=== PATIENT | female | born 1985 | race Caucasian/White ===

== ENCOUNTER 2021-11-08 15:19 | Emergency (ER) | payer MEDICAID ==
[~2021-11-08] VITALS: Ht 152 cm; Wt 79.3 kg
[2021-11-08] MEDS ORDERED: diphenhydrAMINE 25 MG TAB (BENADRYL) PO ONE (15:45)
--- NOTE | 2021-11-08 15:50 | ED General ---
General Chief Complaint: General Problems/Pain Stated Complaint: KNEE PAIN, BACK PAIN, HIP PAIN, HIVES Nursing Triage Note: PT PRESENTS TO ED WITH COMPLAINTS OF HIVES X 2 DAYS AND KNEE/HIP PAIN X 2 MONTHS. Source of Information: Patient Exam Limitations: No Limitations (KARRI LYN) History of Present Illness Date Seen by Provider: Nov 08, 2021 Time Seen by Provider: 15:45 Initial Comments Patient is a 36-year-old female who presents ED multiple complaints. bilateral knee pain, hip pain, low back pain for the past 2 to 3 months. She reports sharp shooting pain to bilateral knees over the past 2 to 3 months. Worse with movement. Difficulty getting up and down stairs with her knee. Denies of any specific trauma, knee giving out. No bowel or urine incontinence, saddle paresthesia. She is concerned for possible UTI. Not concern for . No vaginal bleeding or vaginal discharge, fever, chills, nausea, vomiting, diarrhea. She reports diffuse hives throughout her chest. This started 2 days ago. No change in lotions, soaps, food. Denies taking medication. Does not currently follow-up with her primary care physician. Family history of arthritis. (KARRI LYN) Allergies and Home Medications Allergies Coded Allergies: No Known Drug Allergies (Unverified , 11/08/21) Patient Home Medication List Home Medication List Reviewed: Yes (KARRI LYN) Cephalexin (Cephalexin) 500 Mg Tablet, 500 MG PO BID Prescribed by: BROOKLYN WOODARD on 11/08/21 1631 Meloxicam (Meloxicam) 15 Mg Tablet, 15 MG PO DAILY Prescribed by: BROOKLYN WOODARD on 11/08/21 1631 Methylprednisolone (Methylprednisolone Dose Pack) 4 Mg Tab.ds.pk, 4 MG PO UD Prescribed by: BROOKLYN WOODARD on 11/08/21 1638 Review of Systems Review of Systems Constitutional: No chills, No diaphoresis, No fever, No malaise, No weakness EENTM: No double vision, No eye pain, No throat pain, No throat swelling Respiratory: No cough, No orthopnea, No short of breath, No wheezing Cardiovascular: No chest pain, No edema Gastrointestinal: No abdominal pain, No diarrhea, No nausea, No vomiting Genitourinary: No discharge, No dysuria, No frequency, No hematuria Musculoskeletal: back pain, joint pain Skin: No change in color, No change in hair/nails (KARRI LYN) All Other Systems Reviewed Negative Unless Noted: Yes (KARRI LYN) Past Dejrohs-Orqswx-Sulbwo Hx Patient Social History Tobacco Use?: No Substance use?: Yes Substance type: Methamphetamine Additional substance use comme: REPORTS SHE HAS BEEN CLEAN X 2 MONTHS Alcohol Use?: No Pt feels they are or have been: No (KARRI LYN) Past Medical History Surgery/Hospitalization HX: PMH: ADHD, DEPRESSION (KARRI LYN) Physical Exam Vital Signs Vital Signs - First Documented 11/08/21 15:31 Temp 36.1 Pulse 96 Resp 18 B/P (MAP) 134/78 (96) Pulse Ox 100 (VERÓNICA PATRICIO MD) Vital Signs Capillary Refill : Less Than 3 Seconds (KARRI LYN) Height, Weight, BMI Height: '" Weight: lbs. oz. kg; 34.00 BMI Method: General Appearance: No Apparent Distress, WD/WN Eyes: Bilateral Eye Normal Inspection, Bilateral Eye PERRL, Bilateral Eye EOMI, Bilateral Eye Abnormal EOM HEENT: PERRL/EOMI, TMs Normal, Normal ENT Inspection, Pharynx Normal Neck: Full Range of Motion, Normal Inspection, Non Tender, Supple Respiratory: Chest Non Tender, Lungs Clear, Normal Breath Sounds, No Accessory Muscle Use, No Respiratory Distress Cardiovascular: Regular Rate, Rhythm, No Edema, No Gallop, No JVD, No Murmur Gastrointestinal: Normal Bowel Sounds, No Organomegaly, No Pulsatile Mass, Non Tender Back: Other (Lumbar midline tenderness. Bilateral lumbar paralumbar spinal muscle tenderness) Extremity: Other (Bilateral knee tenderness without erythema, swelling, exudate. Normal active range of motion. No crepitus with patella tracking. Negative anterior posterior drawer test. Negative pain with valgus varus stress. Negative Garcia's test.) Neurologic/Psychiatric: Alert, Oriented x3, No Motor/Sensory Deficits, Normal Mood/Affect Skin: Other (Mild diffuse erythematous edematous papules to the chest) (KARRI LYN) Progress/Results/Core Measures Suspected Sepsis SIRS Temperature: Pulse: 96 Respiratory Rate: 18 Blood Pressure 134 /78 Mean: 96 (KARRI LYN) Results/Orders Lab Results Laboratory Tests Test 11/08/21 15:50 Range/Units Urine Color YELLOW Urine Clarity CLEAR Urine pH 6.0 5-9 Urine Specific Chavies 1.020 1.016-1.022 Urine Protein NEGATIVE NEGATIVE Urine Glucose (UA) NEGATIVE NEGATIVE Urine Ketones NEGATIVE NEGATIVE Urine Nitrite NEGATIVE NEGATIVE Urine Bilirubin NEGATIVE NEGATIVE Urine Urobilinogen 0.2 < = 1.0 MG/DL Urine Leukocyte Esterase 1+ H NEGATIVE Urine RBC (Auto) NEGATIVE NEGATIVE Urine RBC 2-5 H /HPF Urine WBC 5-10 H /HPF Urine Squamous Epithelial Cells 5-10 /HPF Urine Crystals NONE /LPF Urine Bacteria FEW H /HPF Urine Casts NONE /LPF Urine Mucus SMALL H /LPF Urine Culture Indicated YES Urine Test NEGATIVE NEGATIVE (VERÓNICA PATRICIO MD) Micro Results Microbiology 11/08/21 Urine Culture - Final, Complete 3 or more isolates Strep agalactiae Group B (VERÓNICA PATRICIO MD) Vital Signs/I&O 11/08/21 11/08/21 15:31 16:43 Temp 36.1 36.1 Pulse 96 96 Resp 18 18 B/P (MAP) 134/78 (96) 134/78 Pulse Ox 100 100 (VERÓNICA PATRICIO MD) Vital Signs/I&O Capillary Refill : Less Than 3 Seconds (KARRI LYN) Blood Pressure Mean: 96 Departure Communication (Admissions) Patient concern for UTI. Urinalysis with potential UTI. Culture pending. Will discharge with Keflex. She has back pain, hip pain, knee pain. This appears to be worse with walking. No specific trauma. No erythema, swelling. No history of inflammatory disease. No history of any autoimmune disease such as rheumatoid arthritis. Not concern for sexual transmitted infection. Chlamydia and gonorrhea pending. Likely overuse versus arthritic. She is afebrile. Recommend anti-inflammatories. Patient with a steady gait. She also reports a rash which she does have some mild hives. Was given dose of Decadron. Will discharge her Medrol Dosepak. Continue with Benadryl. She needs establish care with PCP. If any worsening symptoms return back to ED for further evaluation. X-ray of the back negative for acute abnormality. Denies any drug use. No bowel or urine cons, saddle paresthesia. No neurological red flag findings (KARRI LYN) Impression Primary Impression: Joint pain Additional Impression: UTI (urinary tract infection) Disposition: 01 HOME, SELF-CARE Condition: Stable Departure-Patient Inst. Decision time for Depature: 16:30 (KARRI LYN) Referrals: [facility] [place] Patient Instructions: Joint Pain Scripts Methylprednisolone (Methylprednisolone Dose Pack) 4 Mg Tab.ds.pk 4 MG PO UD for 6 Days, #21 PKG PER DOSE PACK INSTRUCTIONS Prov: KARRI LYN 11/08/21 Meloxicam (Meloxicam) 15 Mg Tablet 15 MG PO DAILY for 20 Days, #20 TAB Prov: KARRI LYN 11/08/21 Cephalexin (Cephalexin) 500 Mg Tablet 500 MG PO BID for 7 Days, #14 TAB Prov: KARRI LYN 11/08/21 ATTENDING PHYSICIAN NOTE: I was physically present as attending physician in the emergency department during the care of this patient, but I was not directly involved in the decision making or delivery of care for this patient. (VERÓNICA PATRICIO MD) KARRI LYN Nov 08, 2021 15:50 VERÓNICA PATRICIO MD Nov 10, 2021 03:00
[2021-11-08 15:56] LABS: BILIRUBIN,URINE NEGATIVE (NEGATIVE); CLARITY,URINE CLEAR; COLOR,URINE YELLOW; GLUCOSE, URINE (UA) NEGATIVE (NEGATIVE); KETONES,URINE NEGATIVE (NEGATIVE); LEUKOCYTE ESTERASE ,URINE 1+ (NEGATIVE); NITRITE,URINE NEGATIVE (NEGATIVE); PROTEIN,URINE NEGATIVE (NEGATIVE)
[2021-11-08] MEDS ORDERED: HYDROcodone/APAP 5 MG/325 MG (LORTAB) TAB PO ONE (16:15)
[2021-11-08 16:19] LABS: BACTERIA,URINE FEW /HPF
--- NOTE | 2021-11-08 16:21 | Diagnostic Imaging Report ---
EXAMINATION: Lumbar spine at 4:13 p.m. INDICATION: Back pain and hip pain. AP, lateral, and spot lateral views were obtained. There are no prior studies available for comparison. FINDINGS: The lateral view shows the vertebral body heights and alignment to be generally within normal limits. The intervertebral spaces are well maintained. There is no fracture or acute bony abnormality appreciated. There is no sign of a paraspinal mass. The sacroiliac joints are symmetrical and within normal limits. IMPRESSION: There is no acute bony abnormality of the lumbar spine. Dictated by: Dictated on workstation # [id number]
[2021-11-08] MEDS ORDERED: MELO15TA39 PO (16:31)
[2021-11-08] MEDS ORDERED: CEPH500T PO (16:31)
[2021-11-08] MEDS ORDERED: METH4TAB10 PO (16:38)
[2021-11-08 16:43] VITALS: BP 134/78
== END 2021-11-08 16:43 | disposition home or self-care (01) ==
LOC: ER 15:22
DX: N39.0 Urinary tract infection, site not specified (principal); M25.561 Pain in right knee; M25.562 Pain in left knee; M25.551 Pain in right hip; M25.552 Pain in left hip; L50.9 Urticaria, unspecified; Z82.61 Family history of arthritis; Z32.02 Encounter for pregnancy test, result negative
CPT/HCPCS: 36415; 72100; 81000; 84703; 87088; 87491; 87591